=== PATIENT | female | born 1985 | race Caucasian/White ===

== ENCOUNTER → 2019-04-03 07:18 | Outpatient (CLI) | payer OTHER ==
[2014-05-21 07:58] VITALS: BMI 22.2
[~2019-04-03 07:18] MED LIST: BIOTIN5 MG PO; ELAVIL25 MG PO; PAROXETINE HCL10 MG PO
[2019-04-03 08:41] LABS: HCG SERUM NEGATIVE (NEGATIVE)
== END | disposition home or self-care (01) ==
LOC: D.NM 07:18
PROVIDERS: ATTEND Family Medicine
DX: R10.9 Unspecified abdominal pain (principal)